=== PATIENT | female | born 1950 | race Caucasian/White ===

== ENCOUNTER 2017-10-21 07:28 | Outpatient (CLI) | payer BC | END 2017-10-21 07:29 | disposition home or self-care (01) | LOC: BICULT 07:28 | PROVIDERS: ATTEND Otolaryngology Otolaryngic Allergy | DX: E04.2 Nontoxic multinodular goiter (principal); D49.7 Neoplasm of unspecified behavior of endocrine glands and other parts of nervous system | CPT/HCPCS: 76536 ==

== ENCOUNTER 2020-11-29 15:10 | Outpatient (CLI) | payer BC | END 2020-11-29 15:11 | disposition home or self-care (01) | LOC: BICMAMMO 15:10 | PROVIDERS: ATTEND Family Medicine | DX: Z12.31 Encounter for screening mammogram for malignant neoplasm of breast (principal); Z80.3 Family history of malignant neoplasm of breast | CPT/HCPCS: 77063; 77067 ==

== ENCOUNTER 2021-04-04 15:17 | Outpatient (CLI) | payer BC | END 2021-04-04 15:18 | disposition home or self-care (01) | LOC: BICRAD 15:17 | PROVIDERS: ATTEND Family Medicine | DX: G44.86 Cervicogenic headache (principal); M47.812 Spondylosis without myelopathy or radiculopathy, cervical region | CPT/HCPCS: 72040 ==

== ENCOUNTER 2021-08-28 07:50 | Outpatient (CLI) | payer BC | END 2021-08-28 07:51 | disposition home or self-care (01) | LOC: BICMAMMO 07:50 | PROVIDERS: ATTEND Family Medicine | DX: M81.0 Age-related osteoporosis without current pathological fracture (principal); M85.851 Other specified disorders of bone density and structure, right thigh; M85.852 Other specified disorders of bone density and structure, left thigh | CPT/HCPCS: 77080 ==

== ENCOUNTER 2021-12-18 07:59 | Outpatient (CLI) | payer BC | END 2021-12-18 08:00 | disposition home or self-care (01) | LOC: BICMAMMO 07:59 | PROVIDERS: ATTEND Family Medicine | DX: Z12.31 Encounter for screening mammogram for malignant neoplasm of breast (principal); Z80.3 Family history of malignant neoplasm of breast | CPT/HCPCS: 77063; 77067 ==

== ENCOUNTER 2023-01-16 08:37 | Outpatient (CLI) | payer BC | END 2023-01-16 08:38 | disposition home or self-care (01) | LOC: BICMAMMO 08:37 | PROVIDERS: ATTEND Family Medicine | DX: Z12.31 Encounter for screening mammogram for malignant neoplasm of breast (principal); Z80.3 Family history of malignant neoplasm of breast | CPT/HCPCS: 77063; 77067 ==

== ENCOUNTER 2024-01-22 07:44 | Outpatient (CLI) | payer BC | END 2024-01-22 07:45 | disposition home or self-care (01) | LOC: BICMAMMO 07:44 | PROVIDERS: ATTEND Family Medicine | DX: Z12.31 Encounter for screening mammogram for malignant neoplasm of breast (principal); Z80.3 Family history of malignant neoplasm of breast | CPT/HCPCS: 77063; 77067 ==

== ENCOUNTER 2025-01-25 07:51 | Outpatient (CLI) | payer BC | END 2025-01-25 07:52 | disposition home or self-care (01) | LOC: BICMAMMO 07:51 | PROVIDERS: ATTEND Family Medicine | DX: Z12.31 Encounter for screening mammogram for malignant neoplasm of breast (principal); Z80.3 Family history of malignant neoplasm of breast | CPT/HCPCS: 77063; 77067 ==